=== PATIENT | male | born 1965 | race American Indian/Alaskan Native ===

== ENCOUNTER 2017-01-23 18:16 | Emergency (ER) | payer BC ==
[2017-01-23 19:07] VITALS: TEMP 98.9
[2017-01-23] MEDS ORDERED: TDAP Vaccine 0.5 mL Syr IM ONE (20:26)
--- NOTE | 2017-01-23 21:32 | ED PDOC ---
Arrival/HPI - General Chief Complaint: Abnormal Skin Integrity Time Seen by Provider: 01/23/17 20:26 Historian: Patient - History of Present Illness Narrative History of Present Illness (Text): 01/23/17 21:28 Patient reports injuring L hand when he was cutting an avocado and stabbed the center of his L palm. Otherwise: (-) other injury, (-) numbness. Patient is R hand dominant. Tetanus not up to date PMD [place] Past Medical History - Provider Review Nursing Documentation Reviewed: Yes - Infectious Disease Hx of Infectious Diseases: None - Psychiatric Hx Substance Use: No - Anesthesia Hx Anesthesia: No Family/Social History - Physician Review Nursing Documentation Reviewed: Yes Family/Social History: No Known Family HX Smoking Status: Unknown If Ever Smoked Hx Alcohol Use: Yes Frequency of alcohol use: Socially Hx Substance Use: No Allergies/Home Meds Allergies/Adverse Reactions: Allergies shellfish derived Allergy (Verified 01/23/17 19:08) RASH seasonal Allergy (Uncoded 01/23/17 19:08) CONGESTION Review of Systems - Review of Systems Constitutional: Normal. absent: Fatigue, Weight Change, Fevers Musculoskeletal: Normal. absent: Arthralgias, Back Pain, Neck Pain Skin: Normal. absent: Rash, Pruritis, Skin Lesions Physical Exam - Physical Exam Narrative Physical Exam (Text): 01/23/17 21:30 GENERAL APPEARANCE: Patient is awake, alert, oriented x 3, in no acute distress. SKIN: Warm, (-) rash, (-) lesions. UPPER EXTREMITY: (+) 0.5 cm puncture wound to the volar aspect of the hand over the third metacarpal, (-) Tenderness, (-) swelling, (-) ecchymosis; (-) crepitus, (-) deformity. Tendon function intact. (-) distal neurovascular deficit. 2 point discrimination +. Remainder of hand, digits and wrist: (-) injury. Vital Signs Temp Pulse Resp BP Pulse Ox 01/23/17 19:04 98.9 F 90 18 153/79 H 98 Medical Decision Making ED Course and Treatment: 01/23/17 21:30 51 yo M presents with puncture wound to the L hand. XR L hand ordered. Given tdap IM. XR left hand: no fracture, no foreign body, no dislocation, as read by PA Wound irrigated with normal saline, bacitracin and clean dressing applied. X- ray results discussed with the patient.Based on history, exam and diagnostic results plan will be for outpatient follow-up with PMD. Prescription for Keflex provided. Patient instructed on signs of infection and advised to return to the emergency room if any signs of infection such as swelling, redness or increased pain develops. Patient states he fully agrees with and understands discharge instructions. States that he agrees with the plan and disposition. Verbalized and repeated discharge instructions and plan. I have given the patient opportunity to ask any additional questions. Follow up with primary care physician in 1-2 days without fail. Advised to take medication as prescribed. Return to the emergency room at any time for any new or worsening symptoms. - RAD Interpretation Radiology Orders: 01/23/17 20:26 HAND LEFT 3 VIEWS ROUTINE [RAD] Stat - Medication Orders Current Medication Orders: Discontinued Medications Tetanus/Reduced Diphtheria/Acell Pertussis (Boostrix Vaccine Inj) 0.5 ml IM .ONCE ONE Stop: 01/23/17 20:27 Last Admin: 01/23/17 21:28 Dose: 0.[address] 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 Disposition/Present on Arrival - Present on Arrival Any Indicators Present on Arrival: No History of DVT/PE: No History of Uncontrolled Diabetes: No Urinary Catheter: No History of Decub. Ulcer: No History Surgical Site Infection Following: None - Disposition Have Diagnosis and Disposition been Completed?: Yes Diagnosis: Puncture wound Disposition: HOME/ ROUTINE Disposition Time: 21:15 Patient Plan: Discharge Patient Problems: Current Active Problems Problem Status Diagnosed Puncture wound Acute Condition: GOOD Discharge Instructions (ExitCare): Acute Wound Care (ED) Print Language: URDU Additional Instructions: Thank you for letting us take care of you today. You were treated for puncture wound to the L hand. The emergency medical care you received today was directed at your acute symptoms. If you were prescribed any medication, please fill it and take as directed. It may take several days for your symptoms to resolve. Return to the Emergency Department if your symptoms worsen, do not improve, or if you have any other problems. Please contact your doctor in 2 days for re-evaluation and follow up. Bring any paperwork you were given at discharge with you along with any medications you are taking to your follow up visit. Our treatment cannot replace ongoing medical care by a primary care provider (PCP) outside of the emergency department. Thank you for allowing the [facility] team to be part of your care today. If you had an X-Ray : A Radiologist will review the ED reading if any change in treatment is needed we will contact you. Prescriptions: Cephalexin [Keflex] 500 mg PO Q6 #28 capsule Referrals: Nereida Caballero MD [Primary Care Provider] - Follow up with primary Forms: WORK NOTE
[2017-01-24 04:02] VITALS: BP 148/73; PULSE 88; RESP 17; O2SAT 99
--- NOTE | 2017-01-24 09:29 | RAD ---
PROCEDURE: Left Hand Radiographs. HISTORY: trauma COMPARISON: None. FINDINGS: BONES: Normal. No fracture. JOINTS: Normal. No osteoarthritic changes. SOFT TISSUES: Normal. OTHER FINDINGS: None. IMPRESSION: Normal left hand radiographs.
== END 2017-01-23 21:50 | disposition home or self-care (01) ==
LOC: ED 18:16
DX: S61.432A Puncture wound without foreign body of left hand, initial encounter (principal); W26.0XXA Contact with knife, initial encounter; Z23 Encounter for immunization